=== PATIENT | male | born 1950 | race Caucasian/White ===

== ENCOUNTER → 2017-02-09 | Outpatient (CLI) | payer OTHER, MEDICAID | LOC: FIMAGING 08:59 | PROVIDERS: ATTEND Family Medicine | DX: Z13.9 Encounter for screening, unspecified (principal); I72.3 Aneurysm of iliac artery; Z72.0 Tobacco use ==

== ENCOUNTER 2017-04-26 11:51 | Emergency (ER) | payer OTHER, MEDICAID ==
--- NOTE | 2017-04-26 12:14 | CPEKG ---
Heart Rate: 87 RR Interval: 690 P-R Interval: 192 QRSD Interval: 102 QT Interval: 372 QTC Interval: 448 P [place]: 76 QRS [place]: 79 T Wave [place]: 44 EKG Severity - NORMAL ECG - EKG Impression: SINUS RHYTHM Electronically Signed By: Julio Chong 26-Apr-2017 15:00:06
[2017-04-26 12:18] VITALS: RESP 14
--- NOTE | 2017-04-26 12:25 | EDPHY ---
H & P Time Seen by Provider: 04/26/17 11:59 HPI/ROS: Chief complaint. Cough, shortness of breath, chest pain HPI. 66-year-old male with 4 day history of cough. Cough is productive yellow sputum. He has some central chest discomfort especially with cough. No chest discomfort when he is not coughing. Decreased appetite. Shortness of breath with exertion of normal activities. No unusual leg pain or swelling. Fever to 100 degrees. No recent travel or known exposures. No history of lung problems. No abdominal pain, vomiting, diarrhea. ROS Constitutional. Fever Eyes. no problems with vision ENT. no sore throat, no nasal drainage Cardiovascular. Central chest discomfort with cough Respiratory. Dyspnea on exertion and productive cough Abdominal. no abdominal pain, no nausea/vomiting, no diarrhea . no problems urinating MS. no calf pain/swelling, no neck/back pain, no joint pain Skin. no rash Lymph. no swollen glands Neuro. no headache, no dizziness, no difficulty walking or with speech Past Medical/Surgical History: Hypertension, dyslipidemia Social History: Single, daily smoker, no alcohol Smoking Status: Current every day smoker Physical Exam: General Appearance: Alert well-developed male mild distress vital signs are stable Eyes: Pupils equal and round no pallor or injection. ENT, Mouth: Mucous membranes are moist. Respiratory: No retractions. Mild inspiratory and expiratory rhonchi Cardiovascular: Regular rate and rhythm. Gastrointestinal: Abdomen is soft and nontender, no masses, bowel sounds normal. Neurological: Awake and alert, sensory and motor exams grossly normal. Skin: Warm and dry, no rashes. Musculoskeletal: Neck is supple nontender. Extremities symmetrical, full range of motion. Psychiatric: Patient is oriented X 3, there is no agitation. Constitutional: Initial Vital Signs Temperature (C) 36.6 C 04/26/17 11:54 Heart Rate 95 04/26/17 11:54 Respiratory Rate 18 04/26/17 11:54 Blood Pressure 156/89 H 04/26/17 11:54 O2 Sat (%) 100 04/26/17 11:54 O2 Delivery Mode Room Air Allergies/Adverse Reactions: No Known Allergies Allergy (Unverified 04/26/17 11:53) Home Medications: Medication Instructions Recorded Azithromycin [Zithromax] 250 mg PO DAILY #6 tab 04/26/17 predniSONE 40 mg PO DAILY #8 tablet 04/26/17 Medical Decision Making - Diagnostics EKG Interpretation: EKG interpreted by me shows a normal sinus rhythm with normal interval and axis. QRS is normal there is no significant ST elevation or depression. No arrhythmia. The rate is 87 Imaging Results: Imaging Impressions Chest X-Ray 04/26/17 12:35 Impression: Hyperexpanded lungs consistent with COPD. Two view chest x-ray interpreted by me shows questionable left lower lobe infiltrate Procedures: IV normal saline, DuoNeb updraft ED Course/Re-evaluation: Re-evaluation at 2:00 p.m.. Patient is stable and improved. He is speaking conversationally in full sentences. Listening to his lungs shows better air movement. Patient and I discussed lab imaging EKG evaluation. We discussed treatment plan including criteria for return importance of follow-up further evaluation. He expresses understanding and agreement He has an appointment with his regular physician tomorrow and is encouraged to keep this appointment Differential Diagnosis: I considered acute coronary syndrome, PE, pneumonia, COPD exacerbation, bronchitis - Data Points Laboratory Results: Laboratory Results 04/26/17 13:14 04/26/17 13:14 04/26/17 04/26/17 04/26/17 13:14 13:14 13:14 WBC 8.62 10^3/uL 10^3/uL (3.80-9.50) RBC 4.22 10^6/uL L 10^6/uL (4.40-6.38) Hgb 13.0 g/dL L g/dL (13.7-17.5) Hct 37.3 % L % (40.0-51.0) MCV 88.4 fL fL (81.5-99.8) MCH 30.8 pg pg (27.9-34.1) MCHC 34.9 g/dL g/dL (32.4-36.7) RDW 14.2 % % (11.5-15.2) Plt Count 176 10^3/uL 10^3/uL (150-400) MPV 10.9 fL fL (8.7-11.7) Neut % (Auto) 70.1 % % (39.3-74.2) Lymph % (Auto) 18.3 % % (15.0-45.0) [place] % (Auto) 9.5 % % (4.5-13.0) Eos % (Auto) 1.5 % % (0.6-7.6) Baso % (Auto) 0.3 % % (0.3-1.7) Nucleat RBC Rel Count 0.0 % % (0.0-0.2) Absolute Neuts (auto) 6.03 10^3/uL 10^3/uL (1.70-6.50) Absolute Lymphs (auto) 1.58 10^3/uL 10^3/uL (1.00-3.00) Absolute Monos (auto) 0.82 10^3/uL H 10^3/uL (0.30-0.80) Absolute Eos (auto) 0.13 10^3/uL 10^3/uL (0.03-0.40) Absolute Basos (auto) 0.03 10^3/uL 10^3/uL (0.02-0.10) Absolute Nucleated RBC 0.00 10^3/uL 10^3/uL (0-0.01) Immature Gran % 0.3 % % (0.0-1.1) Immature Gran # 0.03 10^3/uL 10^3/uL (0.00-0.10) D-Dimer 0.40 ug/mLFEU ug/mLFEU (0.00-0.50) Sodium 137 mEq/L mEq/L (134-144) Potassium 4.0 mEq/L mEq/L (3.5-5.2) Chloride 102 mEq/L mEq/L (97-110) Carbon Dioxide 24 mEq/l mEq/l (22-31) Anion Gap 11 mEq/L mEq/L (8-16) BUN 10 mg/dL mg/dL (7-23) Creatinine 0.8 mg/dL mg/dL (0.7-1.3) Estimated GFR > 60 Glucose 277 mg/dL H mg/dL (70-100) Calcium 9.5 mg/dL mg/dL (8.5-10.4) Troponin I < 0.012 ng/mL ng/mL (0-0.034) NT-Pro-B Natriuret Pep 31 pg/mL pg/mL (0-125) Medications Given: Discontinued Medications Albuterol/Ipratropium (Duoneb) 3 ml IH EDNOW ONE Stop: 04/26/17 12:35 Last Admin: 04/26/17 13:22 Dose: 3 ml Departure - Departure Disposition: Home, Routine, Self-Care Clinical Impression: Chronic obstructive pulmonary disease with acute exacerbation Condition: Good Instructions: COPD (Chronic Obstructive Pulmonary Disease) (ED) Additional Instructions: You have been given Zithromax and prednisone in the emergency department. I will give you prescriptions for more of these that you can begin tomorrow. Also use the inhaler prescribed using 2 puffs every 4-6 hours to help with cough and breathing. Return For worsening symptoms Keep your appointment tomorrow with Dr. Mayer Referrals: Layla Mayer MD [Primary Care Provider] - 1 day without fail Prescriptions: Azithromycin [Zithromax] 250 mg PO DAILY #6 tab predniSONE 40 mg PO DAILY #8 tablet
[2017-04-26] MEDS ORDERED: IPRATROPIUM/ALBUTEROL 3 ML DEYVIAL IH ONE (12:34)
[2017-04-26 13:22] LABS: % IMMATURE GRANULYOCYTES 0.3 % (0.0-1.1); ABSOLUTE IMMATURE GRANULOCYTES 0.03 10^3/uL (0.00-0.10); ADD DIFF? NO; ADD MORPH? NO; ADD SCAN? NO; ATYPICAL LYMPHOCYTE FLAG 0 (0-99); FRAGMENT RBC FLAG 0 (0-99); HEMATOCRIT 37.3 % (40.0-51.0); LEFT SHIFT FLG 10 (0-99); LIPEMIA HEMOLYSIS FLAG 90 (0-99); MEAN CELL HEMOGLOBIN 30.8 pg (27.9-34.1); MEAN CELL HEMOGLOBIN CONCENTR. 34.9 g/dL (32.4-36.7); MEAN CELL VOLUME 88.4 fL (81.5-99.8); MEAN PLATELET VOLUME 10.9 fL (8.7-11.7); PLATELET CLUMPS FLAG 0 (0-99); PLATELET COUNT 176 10^3/uL (150-400); RED BLOOD CELL COUNT 4.22 10^6/uL (4.40-6.38); RED CELL DISTRIBUTION WIDTH 14.2 % (11.5-15.2)
[2017-04-26 13:37] LABS: ANION GAP 11 mEq/L (8-16); CALCIUM 9.5 mg/dL (8.5-10.4); CARBON DIOXIDE 24 mEq/l (22-31); CHLORIDE 102 mEq/L (97-110); CREATININE 0.8 mg/dL (0.7-1.3); GLOMERULAR FILTRATION RATE > 60; GLUCOSE 277 mg/dL (70-100); SODIUM 137 mEq/L (134-144)
[2017-04-26 13:48] LABS: TROPONIN I < 0.012 ng/mL (0-0.034)
[2017-04-26] MEDS ORDERED: predniSONE 20 MG TAB PO ONE (14:07)
[2017-04-26] MEDS ORDERED: AZITHROMYCIN 250 MG TAB PO ONE (14:07)
[2017-04-26 14:45] VITALS: BP 130/80; PULSE 70; TEMP 98.4; O2SAT 92
== END 2017-04-26 14:42 | disposition home or self-care (01) ==
DX: J44.1 Chronic obstructive pulmonary disease with (acute) exacerbation (principal); I10 Essential (primary) hypertension; F17.200 Nicotine dependence, unspecified, uncomplicated

== ENCOUNTER 2017-05-08 11:25 | Emergency (ER) | payer OTHER, MEDICAID ==
--- NOTE | 2017-05-08 11:41 | CPEKG ---
Heart Rate: 87 RR Interval: 690 P-R Interval: 164 QRSD Interval: 92 QT Interval: 368 QTC Interval: 443 P [place]: 18 QRS [place]: 78 T Wave [place]: 51 EKG Severity - NORMAL ECG - EKG Impression: SINUS RHYTHM Electronically Signed By: Clint Garcia 08-May-2017 15:01:38
--- NOTE | 2017-05-08 12:03 | EDPHY ---
H & P Stated Complaint: yesterday c/o cp and l arm numbness/none today/ Time Seen by Provider: 05/08/17 11:42 HPI/ROS: Chief Complaint: Chest pain yesterday HPI: 66-year-old male with multiple risk factors for coronary disease experience an episode of chest pain yesterday afternoon at about 4 o'clock. Patient states he was laying down and felt some chills, sat up and had chest pain from his left chest was central which lasted a few seconds. Has had no symptoms since that time. No shortness of breath. No abdominal pain. No dyspnea on exertion or pain with exertion. He called the nurse on this morning was instructed to follow-up for further evaluation. He is scheduled for stress test is next Tuesday. ROS: 10 point Review of Systems is negative except as noted in the HPI. PMH: Hypertension, hyperlipidemia, COPD Social History: Positive smoking, no alcohol, no recreational drug use Family History: non-contributory Physical Exam: Gen: Awake, Alert, No Distress HEENT: Nose: no rhinorrhea Eyes: PERRLA, EOMI Mouth: Moist mucosa Neck: Supple, no JVD Chest: nontender, lungs clear to auscultation Heart: S1, S2 normal, no murmur Abd: Soft, non-tender, no guarding Back: no CVA tenderness, no midline tenderness Ext: no edema, non-tender Skin: no rash Neuro: CN II-XII intact, Sensation grossly intact, Strength 5/5 in bilateral upper and lower extremities - Personal History Current Tetanus/Diphtheria Vaccine: Unsure - Medical/Surgical History Hx Asthma: No Hx Chronic Respiratory Disease: No Hx Diabetes: No Hx Cardiac Disease: No Hx Renal Disease: No Hx Cirrhosis: No Hx Alcoholism: No Hx HIV/AIDS: No Hx Splenectomy or Spleen Trauma: No Other PMH: htn. hyperlipidemia - Social History Smoking Status: Current every day smoker Constitutional: Initial Vital Signs Temperature (C) 36.7 C 05/08/17 11:28 Heart Rate 88 05/08/17 11:28 Respiratory Rate 18 05/08/17 11:28 Blood Pressure 146/80 H 05/08/17 11:28 O2 Sat (%) 96 05/08/17 11:28 O2 Delivery Mode Room Air Allergies/Adverse Reactions: No Known Allergies Allergy (Verified 05/08/17 11:26) Home Medications: Medication Instructions Recorded Albuterol Sulfate [Proair Hfa] 2 puffs IH Q4-6PRN PRN #1 04/26/17 [email or web address] Azithromycin [Zithromax] 250 mg PO DAILY #6 tab 04/26/17 Bp Meds 05/08/17 Crestor 05/08/17 Medical Decision Making - Diagnostics EKG Interpretation: ECG time 11:38 a.m. sinus rhythm with a rate of 87, normal axis, normal intervals, no acute ST or T-wave changes. Impression: Normal ECG. ED Course/Re-evaluation: 66-year-old male who had a very brief episode of seconds of chest pain yesterday afternoon. His ECG is normal. His troponin is negative. He is already scheduled for a stress test this coming Tuesday due to just underlying comorbidities. He has never had chest pain or WA in the past. He has been pain -free since yesterday afternoon. Workup appears negative. Will discharge with follow with primary care physician and plan to continue with his stress test as scheduled. - Data Points Laboratory Results: 05/08/17 11:50 Troponin I < 0.012 ng/mL ng/mL (0-0.034) Departure - Departure Disposition: Home, Routine, Self-Care Clinical Impression: Chest pain Condition: Good Instructions: Chest Pain (ED) Additional Instructions: Return to the emergency department for increasing chest pain, shortness of breath, fevers, chills, or any other concerns. Make sure to follow up for your stress test as scheduled this week. Follow up with primary care physician in 3-4 days for re-evaluation. Referrals: Layla Mayer MD [Primary Care Provider] - As per Instructions
[2017-05-08 13:47] VITALS: BP 141/69; PULSE 87; RESP 16; TEMP 97.5; O2SAT 91
== END 2017-05-08 13:47 | disposition home or self-care (01) ==
DX: R07.9 Chest pain, unspecified (principal); I10 Essential (primary) hypertension; J44.9 Chronic obstructive pulmonary disease, unspecified; F17.200 Nicotine dependence, unspecified, uncomplicated

== ENCOUNTER → 2017-08-10 | Outpatient (CLI) | payer OTHER, MEDICAID | LOC: FIMAGING 10:08 | PROVIDERS: ATTEND Family Medicine | DX: I72.3 Aneurysm of iliac artery (principal); R93.8 Abnormal findings on diagnostic imaging of other specified body structures ==

== ENCOUNTER 2017-09-13 09:35 | Day surgery (SDC) | payer OTHER, MEDICAID ==
[2017-09-13] MEDS ORDERED: NS 1,000 ML IV ONE (09:45)
[2017-09-13] MEDS ORDERED: diphenhydrAMINE 25 MG CAP PO ONE (09:45)
[2017-09-13] MEDS ORDERED: DIAZEPAM 5 MG TAB PO ONE (09:45)
[2017-09-13] MEDS ORDERED: FAMOTIDINE 20 MG TAB PO ONE (09:45)
[2017-09-13] MEDS ORDERED: ASPIRIN EC 325 MG TAB PO ONE (09:45)
--- NOTE | 2017-09-13 10:14 | CPEKG ---
Heart Rate: 73 RR Interval: 822 P-R Interval: 176 QRSD Interval: 100 QT Interval: 424 QTC Interval: 468 P [place]: 20 QRS [place]: 72 T Wave [place]: 49 EKG Severity - NORMAL ECG - EKG Impression: SINUS RHYTHM Electronically Signed By: Ellis Agudelo 13-Sep-2017 14:13:31
--- NOTE | 2017-09-13 10:35 | PDPROPOC ---
Sedation Plan of Care Sedation Plan of Care: vital signs stable, mental status noted, patient educated of risks, benefits, alternatives, patient can tolerate sedation ASA Classification: ASA 2 Planned drugs: fentanyl, midazolam Mallampati Score: Class 2 Mallampati Reference Image: Patient passed 3-3-2 rule?: Yes
[2017-09-13 10:36] LABS: % IMMATURE GRANULYOCYTES 0.3 % (0.0-1.1); ABSOLUTE IMMATURE GRANULOCYTES 0.02 10^3/uL (0.00-0.10); ADD DIFF? NO; ADD MORPH? NO; ADD SCAN? NO; ATYPICAL LYMPHOCYTE FLAG 0 (0-99); FRAGMENT RBC FLAG 0 (0-99); HEMATOCRIT 39.4 % (40.0-51.0); HEMOGLOBIN 13.8 g/dL (13.7-17.5); LEFT SHIFT FLG 0 (0-99); LIPEMIA HEMOLYSIS FLAG 90 (0-99); MEAN CELL HEMOGLOBIN 31.2 pg (27.9-34.1); MEAN CELL VOLUME 88.9 fL (81.5-99.8); MEAN PLATELET VOLUME 10.7 fL (8.7-11.7); PLATELET CLUMPS FLAG 10 (0-99); PLATELET COUNT 158 10^3/uL (150-400); RED BLOOD CELL COUNT 4.43 10^6/uL (4.40-6.38); RED CELL DISTRIBUTION WIDTH 14.4 % (11.5-15.2)
--- NOTE | 2017-09-13 10:36 | PDHPUP ---
History & Physical Update H&P update statement: This history and physical update is based on an assessment of the patient which was completed after admission or registration (within 24 hours), but prior to the surgery/procedure. H&P update: H&P reviewed & patient examined, no change in patient's condition since H&P completed
[2017-09-13 10:48] LABS: INR 1.01 (0.83-1.16); PROTIME(PATIENT) 13.2 SEC (12.0-15.0)
[2017-09-13 10:53] LABS: ANION GAP 12 mEq/L (8-16); CARBON DIOXIDE 24 mEq/l (22-31); CHLORIDE 106 mEq/L (97-110); CHOLESTEROL 114 mg/dL (140-220); CHOLESTEROL/HDL RATIO 3.35 RATIO (1.00-4.97); CREATININE 0.8 mg/dL (0.7-1.3); GLOMERULAR FILTRATION RATE > 60; GLUCOSE 179 mg/dL (70-100); HIGH DENSITY LIPOPROTEIN 34 mg/dL (40-65); LOW DENSITY LIPOPROTEIN 30 mg/dL (80-100); POTASSIUM 4.1 mEq/L (3.5-5.2); SODIUM 142 mEq/L (134-144); TRIGLYCERIDE 252 mg/dL (40-150); VERY LOW DENSITY LIPOPROTEINS 50 mg/dL (8-25)
[2017-09-13 10:54] LABS: LDL/HDL RATIO 0.88 RATIO (1.00-3.64); NON-HIGH DENSITY LIPOPROTEIN 80 mg/dL (90-129)
[2017-09-13] MEDS ORDERED: MIDAZOLAM 2 MG/2 ML VIAL ONE (11:12)
[2017-09-13] MEDS ORDERED: HEPARIN 10,000 UNIT/10 ML MDV ONE (11:12)
[2017-09-13] MEDS ORDERED: fentaNYL 100 MCG/2 ML INJ ONE (11:12)
[2017-09-13] MEDS ORDERED: IOPAMIDOL (ISOVUE-370) 150 ML BTL IV ONE (11:12)
[2017-09-13] MEDS ORDERED: VERAPAMIL 5 MG/2 ML VIAL ONE (11:12)
[2017-09-13] MEDS ORDERED: LIDOCAINE 1% 300 MG/30 ML SDV ONE (11:12)
[2017-09-13] MEDS ORDERED: ONDANSETRON 4 MG/2 ML VIAL IVP PRN (11:54)
[2017-09-13] MEDS ORDERED: ATROPINE SULFATE 1 MG/10 ML SYR IVP PRN (11:54)
[2017-09-13] MEDS ORDERED: NITROGLYCERIN 0.4 MG BTL SL PRN (11:54)
--- NOTE | 2017-09-13 11:58 | PDDXCAT ---
Diagnostic Cath Note - . 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 Normal left ventricular systolic function with normal filling pressures. Plan: Aggressive secondary prevention. In particular, smoking cessation, LDL cholesterol less than 70 mg/dL. Control blood pressure less than 135/85. Patient Problems: Problems Problem Status Onset Hypertension Acute Exercise tolerance test abnormal Acute Smoking Acute
== END 2017-09-13 14:37 | disposition home or self-care (01) ==
LOC: FCATH 09:35
PROVIDERS: ATTEND Internal Medicine Interventional Cardiology
PROC: B2111ZZ Fluoroscopy of Multiple Coronary Arteries using Low Osmolar Contrast (ICD-10-PCS; principal; 2017-09-13)
PROC: B2151ZZ Fluoroscopy of Left Heart using Low Osmolar Contrast (ICD-10-PCS; principal; 2017-09-13)
PROC: 4A023N7 Measurement of Cardiac Sampling and Pressure, Left Heart, Percutaneous Approach (ICD-10-PCS; principal; 2017-09-13)
DX: R94.39 Abnormal result of other cardiovascular function study (principal); I25.10 Atherosclerotic heart disease of native coronary artery without angina pectoris; I25.41 Coronary artery aneurysm; I10 Essential (primary) hypertension; J44.9 Chronic obstructive pulmonary disease, unspecified; F17.200 Nicotine dependence, unspecified, uncomplicated
CPT/HCPCS: 93005; 93458; C1769; J1644; J2250; J3010; Q9967

== ENCOUNTER → 2017-12-20 | Outpatient (CLI) | payer OTHER, MEDICAID ==
[~2017-12-20] MED LIST: IOPAMIDOL (ISOVUE 370) 100 ML BTL IV ONE
== END ==
LOC: FIMAGING 14:11
PROVIDERS: ATTEND Family Medicine
DX: I72.3 Aneurysm of iliac artery (principal); I71.2 Thoracic aortic aneurysm, without rupture; J43.2 Centrilobular emphysema; K82.9 Disease of gallbladder, unspecified; K44.9 Diaphragmatic hernia without obstruction or gangrene
CPT/HCPCS: 74174; Q9967

== ENCOUNTER → 2018-01-10 | Outpatient (CLI) | payer OTHER, MEDICAID | LOC: FIMAGING 12:39 | PROVIDERS: ATTEND Family Medicine | DX: I77.811 Abdominal aortic ectasia (principal); I72.3 Aneurysm of iliac artery | CPT/HCPCS: 74174; Q9967 ==

== ENCOUNTER → 2018-09-20 | Outpatient (CLI) | payer OTHER, MEDICAID | LOC: FIMAGING 09-11 12:16 | PROVIDERS: ATTEND Family Medicine | DX: I71.2 Thoracic aortic aneurysm, without rupture (principal); I72.3 Aneurysm of iliac artery; N28.9 Disorder of kidney and ureter, unspecified; N40.0 Benign prostatic hyperplasia without lower urinary tract symptoms; M47.895 Other spondylosis, thoracolumbar region | CPT/HCPCS: 75635; Q9967; 82565-PO ==

== ENCOUNTER → 2019-03-09 | Outpatient (CLI) | payer OTHER, MEDICAID | LOC: FIMAGING 13:39 | PROVIDERS: ATTEND Family Medicine | DX: Z72.0 Tobacco use (principal); J43.9 Emphysema, unspecified; J84.10 Pulmonary fibrosis, unspecified ==